=== PATIENT | male | born 1985 | race Two or more races ===

== ENCOUNTER 2018-07-03 16:06 | Emergency (ER) | payer SELFPAY ==
[~2018-07-03] VITALS: Ht 167.6 cm; Wt 60.0 kg
[2018-07-03 16:22] VITALS: BP 109/59
== END 2018-07-03 18:23 | disposition home or self-care (01) ==
LOC: ER 16:07
DX: Z13.89 Encounter for screening for other disorder (principal); F12.90 Cannabis use, unspecified, uncomplicated
CPT/HCPCS: 99281